=== PATIENT | female | born 1985 ===

== ENCOUNTER → 2025-01-05 12:44 | Outpatient (ROUT) | payer SELFPAY ==
[2025-01-05 13:21] LABS: INR 1.0 (0.9-1.3); Prothrombin Time 11.1 SECONDS (9.4-12.5)
== END ==
PROVIDERS: Visit Provider Family Medicine
DX: M79.89 Other specified soft tissue disorders (principal); R60.0 Localized edema
CPT/HCPCS: 85379; 85610